=== PATIENT | male | born 1945 | race Caucasian/White ===

== ENCOUNTER → 2016-11-01 | Outpatient (CLI) | payer MEDICARE ==
[2016-11-01 20:23] LABS: Non-African American GFR(MDRD) >60 (>60 ml/min/1.73 sqM)
--- NOTE | 2016-11-02 02:45 | MR ---
EXAMINATION TYPE: MR liver wo/w con DATE OF EXAM: 11/01/2016 9:29 PM COMPARISON: 02/10/2016 HISTORY: Unspecified cirrhosis of liver CONTRAST: Standard multiplanar, multisequence MRI departmental protocol utilizing 20 mL intravenous MultiHance gadolinium contrast. FINDINGS: Liver is somewhat small and irregular. This is consistent with cirrhosis. There is no discr ete liver mass. There is uniform enhancement of the liver with the contrast. Liver margin is somewhat irregular. Spleen is enlarged and measures 15 cm. There are enlarged splenic veins consistent with p ortal venous hypertension. There is no evidence of a pancreatic mass. There is massive ascites. There is a 2 cm cortical cyst on the upper pole of the left kidney. Kidneys show no hydronephrosis. T here is no evidence of retroperitoneal adenopathy. There are some prominent vessels at the gastric fu ndus consistent with varices. There is a left pleural effusion. IMPRESSION: There are changes of hepatic cirrhosis with splenomegaly and evidence of portal venous hypertension. No discrete liver mass. Massive ascites. Left pleural effusion. Compared to the old MR scan of 02/10/2016 the changes in the liver are new. Ascites fluid is new. Sple nomegaly is stable. Left pleural effusion appears new.
== END | disposition home or self-care (01) ==
LOC: RADMRIMAIN 19:39
PROVIDERS: ATTEND Internal Medicine Gastroenterology
DX: K74.60 Unspecified cirrhosis of liver (principal); R16.1 Splenomegaly, not elsewhere classified; K76.6 Portal hypertension; R18.8 Other ascites
CPT/HCPCS: 82565; 74183; A9577

== ENCOUNTER 2017-01-04 08:45 | Day surgery (SDC) | payer MEDICARE ==
[2017-01-04 09:38] VITALS: RESP 14; TEMP 98.1
[2017-01-04 10:05] LABS: INR 1.2 (<1.1); Non-African American GFR(MDRD) >60 (>60 ml/min/1.73 sqM); Prothrombin Time 11.8 sec (9.0-12.0)
[2017-01-04 10:24] LABS: Mean Platelet Volume 8.9
[2017-01-04] MEDS: ALBUMIN HUMAN 25% 50 ML in EMPTY BAG 1 BAG IVPB SCH ×3 (11:37→12:07)
[2017-01-04] MEDS ORDERED: ALBUMIN HUMAN 25% 50 ML in EMPTY BAG 1 BAG IVPB ONE (12:30)
[2017-01-04] MEDS ORDERED: ALBUMIN HUMAN 25% 25 ML in EMPTY BAG 1 BAG IVPB ONE (12:30)
[2017-01-04 12:59] VITALS: BP 123/56; PULSE 71
--- NOTE | 2017-01-04 16:00 | US ---
EXAMINATION TYPE: US paracentesis abd w/image DATE OF EXAM: 01/04/2017 1:06 PM COMPARISON: NONE HISTORY: Ascites. PROCEDURE: Maximal barrier technique was utilized. The skin overlying a suitable pocket of fluid was localized with ultrasound and the overlying skin was prepped and draped. Ultrasound was utilized with sterile technique. Lidocaine was used for local anesthesia and a skin louann made with a scalpel. Catheter was advanced under direct ultrasound guidance into a suitable pocket of fluid and approximately 11.2 lite rs of serous fluid were removed. Catheter was withdrawn and hemostasis achieved. There is no immedi ate complication; the patient is discharged in stable condition. IMPRESSION: STATUS POST ULTRASOUND GUIDED PARACENTESIS FOR PALLIATION OF ASCITES. THIS PROCEDURE WA S PERFORMED BY THE UNDERSIGNED.
== END 2017-01-04 13:20 | disposition home or self-care (01) ==
LOC: RADPROMAIN 08:45
PROVIDERS: ATTEND Internal Medicine Gastroenterology
DX: R18.8 Other ascites (principal)
CPT/HCPCS: 82565; 85049; 85610; 96365; 49083; P9047

== ENCOUNTER 2017-02-15 12:05 | Day surgery (SDC) | payer MEDICARE ==
[2017-02-15 12:33] VITALS: RESP 14; TEMP 98.1
[2017-02-15 12:35] LABS: Mean Platelet Volume 9.1
[2017-02-15 12:39] LABS: INR 1.2 (<1.1); Prothrombin Time 11.5 sec (9.0-12.0)
[2017-02-15 12:46] LABS: Non-African American GFR(MDRD) >60 (>60 ml/min/1.73 sqM)
[2017-02-15] MEDS: ALBUMIN HUMAN 25% 50 ML in EMPTY BAG 1 BAG IVPB SCH ×4 (13:56→15:18)
[2017-02-15 14:28] VITALS: BP 132/63; PULSE 71
--- NOTE | 2017-02-15 15:33 | US ---
EXAMINATION TYPE: US paracentesis abd w/image DATE OF EXAM: 02/15/2017 CLINICAL HISTORY: Ascites The procedure was discussed with the patient. The risks, complications, benefits, and alternatives we re discussed and any questions were answered. Informed consent was obtained. The patient was placed s upine on the ultrasound table and prepped and draped in the usual sterile fashion. All elements of maximal barrier technique were utilized. Under ultrasound guidance, access into the right lower quadrant was obtained, via the paracentesis catheter system and direct ultrasound guidanc e. Approximately 7.5 liters of straw-colored fluid was removed. The patient was stable throughout the pr ocedure and remained stable upon discharge from Department of Radiology. IMPRESSION: Successful therapeutic paracentesis under ultrasound guidance.
== END 2017-02-15 14:48 | disposition home or self-care (01) ==
LOC: RADPROMAIN 12:05
PROVIDERS: ATTEND Internal Medicine Gastroenterology
DX: R18.8 Other ascites (principal)
CPT/HCPCS: 82565; 85049; 85610; 96365; 49083; P9047

== ENCOUNTER 2017-03-08 09:02 | Day surgery (SDC) | payer MEDICARE ==
[2017-03-08 09:19] VITALS: TEMP 97.7
[2017-03-08 09:42] LABS: INR 1.2 (<1.1); Prothrombin Time 11.5 sec (9.0-12.0)
[2017-03-08 09:45] LABS: Non-African American GFR(MDRD) >60 (>60 ml/min/1.73 sqM)
[2017-03-08 09:57] LABS: Mean Platelet Volume 8.8
[2017-03-08 10:21] VITALS: RESP 20
[2017-03-08] MEDS: ALBUMIN HUMAN 25% 50 ML in EMPTY BAG 1 BAG IVPB SCH ×5 (10:48→12:10)
[2017-03-08 12:11] VITALS: BP 121/58; PULSE 74
--- NOTE | 2017-03-08 16:00 | US ---
EXAMINATION TYPE: US paracentesis abd w/image DATE OF EXAM: 03/08/2017 COMPARISON: NONE HISTORY: Ascites. PROCEDURE: Maximal barrier technique was utilized. The skin overlying a suitable pocket of fluid was localized with ultrasound and the overlying skin was prepped and draped. Ultrasound was utilized with sterile technique. Lidocaine was used for local anesthesia and a skin louann made with a scalpel. Catheter was advanced under direct ultrasound guidance into a suitable pocket of fluid and approximately 9.6 liter s of serous fluid were removed. Catheter was withdrawn and hemostasis achieved. There is no immedia te complication; the patient is discharged in stable condition. IMPRESSION: STATUS POST ULTRASOUND GUIDED PARACENTESIS FOR PALLIATION OF ASCITES. THIS PROCEDURE WA S PERFORMED BY THE UNDERSIGNED.
== END 2017-03-08 12:20 | disposition home or self-care (01) ==
LOC: RADPROMAIN 09:02
PROVIDERS: ATTEND Internal Medicine Gastroenterology
DX: R18.8 Other ascites (principal)
CPT/HCPCS: 82565; 85049; 85610; 96365; 36415; 49083; P9047

== ENCOUNTER 2017-03-25 08:56 | Day surgery (SDC) | payer MEDICARE ==
[2017-03-25 09:23] VITALS: RESP 14; TEMP 97.7
[2017-03-25] MEDS ORDERED: HYDROcodone/APAP 5-325MG 1 EACH TAB PO STA (09:25)
[2017-03-25 09:27] LABS: INR 1.2 (<1.1); Prothrombin Time 11.5 sec (9.0-12.0)
[2017-03-25 09:29] LABS: Mean Platelet Volume 9.3
[2017-03-25 09:30] LABS: Non-African American GFR(MDRD) >60 (>60 ml/min/1.73 sqM)
[2017-03-25] MEDS: ALBUMIN HUMAN 25% 50 ML in EMPTY BAG 1 BAG IVPB SCH ×4 (10:07→10:53)
[2017-03-25 11:39] VITALS: BP 118/54; PULSE 78
--- NOTE | 2017-03-25 11:58 | US ---
Therapeutic paracentesis. DATE OF EXAM: 03/25/2017 CLINICAL HISTORY: Ascites The procedure was discussed with the patient. The risks, complications, benefits, and alternatives we re discussed and any questions were answered. Informed consent was obtained. The patient was placed s upine on the ultrasound table and prepped and draped in the usual sterile fashion. All elements of maximal barrier technique were utilized. Under ultrasound guidance, access into the left lower quadrant was obtained, via the paracentesis catheter system and direct ultrasound guidance . Approximately 10.8 liters of straw-colored fluid was removed. The patient was stable throughout the p rocedure and remained stable upon discharge from Department of Radiology. IMPRESSION: Successful therapeutic paracentesis under ultrasound guidance.
== END 2017-03-25 11:45 | disposition home or self-care (01) ==
LOC: RADPROMAIN 08:56
PROVIDERS: ATTEND Internal Medicine Gastroenterology
DX: R18.8 Other ascites (principal)
CPT/HCPCS: 82565; 85049; 85610; 96365; 49083; P9047

== ENCOUNTER 2017-04-02 11:53 | Day surgery (SDC) | payer MEDICARE ==
[2017-04-02 12:14] VITALS: RESP 14; TEMP 98.3
[2017-04-02 12:18] LABS: Mean Platelet Volume 8.8
[2017-04-02 12:21] LABS: INR 1.1 (<1.1); Prothrombin Time 11.3 sec (9.0-12.0)
[2017-04-02 12:25] LABS: Non-African American GFR(MDRD) >60 (>60 ml/min/1.73 sqM)
[2017-04-02] MEDS: ALBUMIN HUMAN 25% 50 ML in EMPTY BAG 1 BAG IVPB SCH ×4 (13:19→13:58)
[2017-04-02 14:20] VITALS: BP 132/53; PULSE 79
--- NOTE | 2017-04-02 15:18 | US ---
EXAMINATION TYPE: US paracentesis abd w/image DATE OF EXAM: 04/02/2017 COMPARISON: NONE HISTORY: Ascites. PROCEDURE: Maximal barrier technique was utilized. The skin overlying a suitable pocket of fluid was localized with ultrasound and the overlying skin was prepped and draped. Ultrasound was utilized with sterile technique. Lidocaine was used for local anesthesia and a skin louann made with a scalpel. Catheter was advanced under direct ultrasound guidance into a suitable pocket of fluid and approximately 9.7 liter s of serous fluid were removed. Catheter was withdrawn and hemostasis achieved. There is no immedia te complication; the patient is discharged in stable condition. IMPRESSION: STATUS POST ULTRASOUND GUIDED PARACENTESIS FOR PALLIATION OF ASCITES. THIS PROCEDURE WA S PERFORMED BY THE UNDERSIGNED.
== END 2017-04-02 14:37 | disposition home or self-care (01) ==
LOC: RADPROMAIN 11:53
PROVIDERS: ATTEND Internal Medicine Gastroenterology
DX: R18.8 Other ascites (principal)
CPT/HCPCS: 82565; 85049; 85610; 96365; 49083; P9047

== ENCOUNTER 2017-04-10 09:04 | Day surgery (SDC) | payer MEDICARE ==
[2017-04-10 09:16] VITALS: TEMP 98.1
[2017-04-10 09:39] LABS: INR 1.1 (<1.2); Prothrombin Time 11.5 sec (9.0-12.0)
[2017-04-10 09:45] LABS: Non-African American GFR(MDRD) >60 (>60 ml/min/1.73 sqM)
[2017-04-10 10:35] VITALS: RESP 16
[2017-04-10] MEDS: ALBUMIN HUMAN 25% 50 ML in EMPTY BAG 1 BAG IVPB SCH ×3 (10:37→11:01)
[2017-04-10 11:29] VITALS: BP 131/60; PULSE 84
--- NOTE | 2017-04-10 12:11 | US ---
EXAMINATION TYPE: US paracentesis abd w/image DATE OF EXAM: 04/10/2017 CLINICAL HISTORY: Ascites The procedure was discussed with the patient. The risks, complications, benefits, and alternatives we re discussed and any questions were answered. Informed consent was obtained. The patient was placed s upine on the ultrasound table and prepped and draped in the usual sterile fashion. All elements of maximal barrier technique were utilized. Under ultrasound guidance, access into the left lower quadrant was obtained, via the paracentesis catheter system and direct ultrasound guidance . Approximately 9.2 liters of straw-colored fluid was removed. The patient was stable throughout the pr ocedure and remained stable upon discharge from Department of Radiology. IMPRESSION: Successful therapeutic paracentesis under ultrasound guidance.
== END 2017-04-10 11:52 | disposition home or self-care (01) ==
LOC: RADPROMAIN 09:04
PROVIDERS: ATTEND Internal Medicine Gastroenterology
DX: R18.8 Other ascites (principal)
CPT/HCPCS: 82565; 85049; 85610; 96365; 49083; P9047

== ENCOUNTER 2017-04-19 08:39 | Day surgery (SDC) | payer MEDICARE ==
[2017-04-19 09:15] VITALS: TEMP 97.6
[2017-04-19 09:25] LABS: Mean Platelet Volume 8.2
[2017-04-19 09:33] LABS: INR 1.1 (<1.2); Prothrombin Time 10.7 sec (9.0-12.0)
[2017-04-19 09:45] LABS: Non-African American GFR(MDRD) >60 (>60 ml/min/1.73 sqM)
[2017-04-19] MEDS: ALBUMIN HUMAN 25% 50 ML in EMPTY BAG 1 BAG IVPB SCH ×4 (11:30→13:00)
--- NOTE | 2017-04-19 14:04 | US ---
EXAMINATION TYPE: US paracentesis abd w/image DATE OF EXAM: 04/19/2017 COMPARISON: NONE HISTORY: Ascites. PROCEDURE: Maximal barrier technique was utilized. The skin overlying a suitable pocket of fluid was localized with ultrasound and the overlying skin was prepped and draped. Ultrasound was utilized with sterile technique. Lidocaine was used for local anesthesia and a skin louann made with a scalpel. Catheter was advanced under direct ultrasound guidance into a suitable pocket of fluid and approximately 9.1 liter s of serous fluid were removed. Catheter was withdrawn and hemostasis achieved. There is no immedia te complication; the patient is discharged in stable condition. IMPRESSION: STATUS POST ULTRASOUND GUIDED PARACENTESIS FOR PALLIATION OF ASCITES. THIS PROCEDURE WA S PERFORMED BY THE UNDERSIGNED.
[2017-04-19 16:24] VITALS: BP 127/64; PULSE 65; RESP 18
== END 2017-04-19 13:15 | disposition home or self-care (01) ==
LOC: RADPROMAIN 08:39
PROVIDERS: ATTEND Internal Medicine Gastroenterology
DX: R18.8 Other ascites (principal)
CPT/HCPCS: 82565; 85049; 85610; 96365; 36415; 49083; P9047

== ENCOUNTER 2017-04-29 09:14 | Day surgery (SDC) | payer MEDICARE ==
[2017-04-29 11:45] LABS: Mean Platelet Volume 9.9
[2017-04-29 11:55] LABS: Non-African American GFR(MDRD) >60 (>60 ml/min/1.73 sqM)
[2017-04-29 12:06] LABS: INR 1.1 (<1.2); Prothrombin Time 11.1 sec (9.0-12.0)
[2017-04-29] MEDS: ALBUMIN HUMAN 25% 50 ML in EMPTY BAG 1 BAG IVPB SCH ×4 (12:40→13:29)
[2017-04-29 14:24] VITALS: BP 149/63; PULSE 78; RESP 16
--- NOTE | 2017-04-29 16:59 | US ---
EXAMINATION TYPE: US paracentesis abd w/image DATE OF EXAM: 04/29/2017 COMPARISON: NONE HISTORY: Ascites. PROCEDURE: Maximal barrier technique was utilized. The skin overlying a suitable pocket of fluid was localized with ultrasound and the overlying skin was prepped and draped. Ultrasound was utilized with sterile technique. Lidocaine was used for local anesthesia and a skin louann made with a scalpel. Catheter was advanced under direct ultrasound guidance into a suitable pocket of fluid and approximately 8.5 liter s of serous fluid were removed. Catheter was withdrawn and hemostasis achieved. There is no immedia te complication; the patient is discharged in stable condition. IMPRESSION: STATUS POST ULTRASOUND GUIDED PARACENTESIS FOR PALLIATION OF ASCITES. THIS PROCEDURE WA S PERFORMED BY THE UNDERSIGNED.
== END 2017-04-29 14:15 | disposition home or self-care (01) ==
LOC: RADPROMAIN 09:14
PROVIDERS: ATTEND Internal Medicine Gastroenterology
DX: R18.8 Other ascites (principal)
CPT/HCPCS: 82565; 85049; 85610; 96365; 36415; 49083; P9047

== ENCOUNTER 2017-04-29 09:26 | Emergency (ER) | payer MEDICARE ==
--- NOTE | 2017-04-29 10:03 | ED ---
General Adult HPI - General Chief complaint: Fall Stated complaint: Fall Time Seen by Provider: 04/29/17 09:51 Source: patient, family, RN notes reviewed Mode of arrival: wheelchair Limitations: no limitations - History of Present Illness Initial comments: Patient is a pleasant 71-year-old male presenting to the emergency department following a fall. Patient was coming to the hospital today to have fluid drained from his abdomen. Patient has paracentesis done weekly secondary to liver disease. Patient states normally the take off around 9 L. Patient does feel somewhat short of breath however attributes most that to his abdominal distention. Patient did fall today and landed on his left side. Patient did scratch his left elbow, tenderness immunization up-to-date. Patient mostly complains of discomfort of his left ribs. Patient denies any abdominal discomfort several times. Patient states he did chip a tooth and has some mild left jaw discomfort. Patient states he frequently does have balance problems and does frequently fall or lose his balance. No head injury or loss of consciousness. - Related Data Home Medications Medication Instructions Recorded Confirmed Sertraline [Zoloft] 200 mg PO DAILY 04/09/14 04/22/17 Simvastatin [Zocor] 40 mg PO DAILY 04/09/14 04/22/17 Ferrous Sulfate [Feosol] 325 mg PO BID 05/23/16 04/22/17 Furosemide [Lasix] 40 mg PO BID 01/04/17 04/22/17 Lactulose 10 ml PO BID 01/04/17 04/22/17 Propranolol [Inderal] 1 tab PO DAILY 01/04/17 04/22/17 Spironolactone [Aldactone] 100 mg PO BID 01/04/17 04/22/17 Cholestyramine (with Sugar) 1 packet PO DAILY 02/15/17 04/22/17 [Cholestyramine Packet] Ursodiol [Actigall] 300 mg PO BID 02/15/17 04/22/17 Eszopiclone [Lunesta] 3 mg PO HS 04/19/17 04/22/17 Sucralfate [Carafate] 1 gm PO QID 04/19/17 04/22/17 Melatonin 10 mg PO HS 04/29/17 04/29/17 Pantoprazole Sodium [Protonix] 40 mg PO BID 04/29/17 04/29/17 Previous Rx's Medication Instructions Recorded traMADol HCl [Ultram] 50 mg PO Q6H PRN #20 tab 04/29/17 Allergies Allergy/AdvReac Type Severity Reaction Status Date / Time erythromycin base Allergy Intermediate Abdominal Verified 04/29/17 09:38 [Erythromycin Base] Pain fresh fruit Allergy Anaphylaxis Uncoded 04/29/17 09:38 raw nuts Allergy Anaphylaxis Uncoded 04/29/17 09:38 Review of Systems ROS Statement: Those systems with pertinent positive or pertinent negative responses have been documented in the HPI. ROS Other: All systems not noted in ROS Statement are negative. Constitutional: Denies: fever Eyes: Denies: eye pain ENT: Denies: ear pain Respiratory: Reports: dyspnea. Denies: cough Cardiovascular: Reports: chest pain (Left ribs) Endocrine: Denies: fatigue Gastrointestinal: Reports: abdominal pain (Distended, chronic) Genitourinary: Denies: dysuria Musculoskeletal: Denies: back pain Skin: Denies: rash Past Medical History Past Medical History: GERD/Reflux, GI Bleed, Hyperlipidemia, Hypertension, Osteoarthritis (OA) Additional Past Medical History / Comment(s): rectal polyps, Cirrohosis- 3 UNITS BLOOD @ [facility] 05/14/16 R/T GI BLEEDING- PT STATES LAST HGB 10 WAS 7 PRIOR TO TRANSFUSION, ascites requiring paracentesis History of Any Multi-Drug Resistant Organisms: None Reported Past Surgical History: Hernia Repair, Joint Replacement Additional Past Surgical History / Comment(s): Knee surgery X2 on the right knee , Knee surgery x 2 left knee, Lt knee replacement about 2 1/[address] Rodriguez, Rt hand surgery carpal tunnel and trigger finger release, Rt inguinal hernia repair, Eyelid surgery on both eyes to clip them, paracentesis Past Anesthesia/Blood Transfusion Reactions: No Reported Reaction Past Psychological History: Anxiety Smoking Status: Former smoker Past Alcohol Use History: None Reported Past Drug Use History: None Reported - Past Family History Mother Additional Family Medical History / Comment(s): from Cancer at age 36- cervical & colon Father Additional Family Medical History / Comment(s): of lung cancer at 54 Daughter(s) Additional Family Medical History / Comment(s): Endometrosis Sister(s) Family Medical History: Thyroid Disorder General Exam Limitations: no limitations General appearance: alert, in no apparent distress Head exam: Present: atraumatic, normocephalic Eye exam: Present: normal appearance, PERRL ENT exam: Present: normal oropharynx, other (Left upper central incisor with small chip. This is a dental and plan.) Neck exam: Present: normal inspection. Absent: tenderness Respiratory exam: Present: normal lung sounds bilaterally, chest wall tenderness (Left 10th rib posterior, anterior/lateral approximately ribs 8 and 9.) Cardiovascular Exam: Present: regular rate, normal rhythm GI/Abdominal exam: Present: soft, distended. Absent: tenderness, guarding, rebound, rigid Extremities exam: Present: normal inspection, full ROM. Absent: tenderness Back exam: Present: other (left Posterior 10th rib tenderness). Absent: vertebral tenderness Neurological exam: Present: alert Psychiatric exam: Present: normal affect, normal mood Skin exam: Present: abrasion (Left elbow) Course Vital Signs 04/29/17 09:33 Temperature 97.0 F L Pulse Rate 84 Respiratory 20 Rate Blood Pressure 120/53 O2 Sat by Pulse 100 Oximetry Medical Decision Making - Medical Decision Making Patient reexamined and resting comfortably in bed. Patient still feels somewhat short of breath however attributes this to his abdominal distention. Patient would like to go have his paracentesis done. Patient is receptive to pain medication at this time as well as discharge. Patient states she can only have limited Tylenol. Patient advised on need to return for difficulty breathing or worsening symptoms. Family is present. - Radiology Data Radiology results: image reviewed (Mandible x-ray and x-ray of the left ribs and chest show no acute abnormality. No evidence of pneumothorax or displaced rib fracture.) Disposition Clinical Impression: Fall, Contusion of chest Disposition: HOME SELF-CARE Condition: Stable Instructions: Rib Fracture (ED) Additional Instructions: Please follow-up with primary care physician in the next day or 2 for recheck. You are able to have your paracentesis done at this time. Return for difficulty in breathing and increased pain, abdominal pain, worsening or changing symptoms or other concerns. Prescriptions: traMADol HCl [Ultram] 50 mg PO Q6H PRN #20 tab PRN Reason: Pain/Discomfort Referrals: Hilda Ron MD [Primary Care Provider] - 1-2 days Time of Disposition: 10:59
--- NOTE | 2017-04-29 10:33 | XR ---
EXAMINATION TYPE: XR mandible complete DATE OF EXAM: 04/29/2017 CLINICAL HISTORY: Mandibular pain after a fall TECHNIQUE: Frontal, lateral, and open-mouth views of the mandible were obtained. COMPARISON: None. FINDINGS: There is no acute fracture/dislocation evident in the mandible. Visualized cervical spine maintains normal alignment with no prevertebral soft tissue swelling. No radiopaque foreign body is s een. Paranasal sinuses are well aerated. No nasal septal deviation. IMPRESSION: There is no acute fracture or dislocation of the mandible.
--- NOTE | 2017-04-29 10:36 | XR ---
EXAMINATION TYPE: XR ribs LT w pa chest xray DATE OF EXAM: 04/29/2017 CLINICAL HISTORY: Left-sided rib pain after a fall TECHNIQUE: Single frontal view of the chest is obtained. COMPARISON: None FINDINGS: No displaced rib fractures identified. The osseous structures appear intact with degenerati ve changes of the acromioclavicular joints. There is no focal air space opacity, pleural effusion, or pneumothorax seen. The cardiac silhouette size is within normal limits. IMPRESSION: No evidence of displaced rib fracture or acute cardiopulmonary process.
[2017-04-29] MEDS ORDERED: MORPHINE SULFATE 10 MG/ML SYRINGE IM STA (10:56)
[2017-04-29 11:19] VITALS: BP 129/62; PULSE 77; RESP 18; TEMP 97.8
== END 2017-04-29 11:21 | disposition home or self-care (01) ==
LOC: EC 09:26
DX: S20.212A Contusion of left front wall of thorax, initial encounter (principal); S50.312A Abrasion of left elbow, initial encounter; R68.84 Jaw pain; K21.9 Gastro-esophageal reflux disease without esophagitis; I10 Essential (primary) hypertension; E78.5 Hyperlipidemia, unspecified; M19.90 Unspecified osteoarthritis, unspecified site; F41.9 Anxiety disorder, unspecified; Z87.891 Personal history of nicotine dependence; Z79.899 Other long term (current) drug therapy; Z88.1 Allergy status to other antibiotic agents; Z91.018 Allergy to other foods; W19.XXXA Unspecified fall, initial encounter
CPT/HCPCS: 70110; 71101; 99283; 96372; J2270

== ENCOUNTER 2017-05-08 08:46 | Day surgery (SDC) | payer MEDICARE ==
[2017-05-08 09:26] VITALS: RESP 14; TEMP 97.6
[2017-05-08 09:28] LABS: Mean Platelet Volume 8.5
[2017-05-08 09:39] LABS: INR 1.2 (<1.2)
[2017-05-08 09:41] LABS: Non-African American GFR(MDRD) >60 (>60 ml/min/1.73 sqM)
[2017-05-08] MEDS: ALBUMIN HUMAN 25% 50 ML in EMPTY BAG 1 BAG IVPB SCH ×4 (10:12→11:15)
[2017-05-08 11:18] VITALS: BP 109/51; PULSE 70
--- NOTE | 2017-05-08 13:08 | US ---
EXAMINATION TYPE: US paracentesis abd w/image DATE OF EXAM: 05/08/2017 COMPARISON: NONE HISTORY: Ascites. PROCEDURE: Maximal barrier technique was utilized. The skin overlying a suitable pocket of fluid was localized with ultrasound and the overlying skin was prepped and draped. Ultrasound was utilized with sterile technique. Lidocaine was used for local anesthesia and a skin louann made with a scalpel. Catheter was advanced under direct ultrasound guidance into a suitable pocket of fluid and approximately 7.5 liter s of serous fluid were removed. Catheter was withdrawn and hemostasis achieved. There is no immedia te complication; the patient is discharged in stable condition. IMPRESSION: STATUS POST ULTRASOUND GUIDED PARACENTESIS FOR PALLIATION OF ASCITES. THIS PROCEDURE WA S PERFORMED BY THE UNDERSIGNED.
== END 2017-05-08 11:30 | disposition home or self-care (01) ==
LOC: RADPROMAIN 08:46
PROVIDERS: ATTEND Internal Medicine Gastroenterology
DX: R18.8 Other ascites (principal)
CPT/HCPCS: 49083; 82565; 85049; 85610

== ENCOUNTER 2017-05-16 12:00 | Day surgery (SDC) | payer MEDICARE ==
[2017-05-16 12:46] VITALS: TEMP 98.1
[2017-05-16 13:34] VITALS: RESP 20
[2017-05-16] MEDS: ALBUMIN HUMAN 25% 50 ML in EMPTY BAG 1 BAG IVPB SCH ×3 (13:51→14:28)
[2017-05-16 15:10] VITALS: BP 112/54; PULSE 69
--- NOTE | 2017-05-16 16:00 | US ---
EXAMINATION TYPE: US paracentesis abd w/image DATE OF EXAM: 05/16/2017 CLINICAL HISTORY: Ascites The procedure was discussed with the patient. The risks, complications, benefits, and alternatives we re discussed and any questions were answered. Informed consent was obtained. The patient was placed s upine on the ultrasound table and prepped and draped in the usual sterile fashion. All elements of maximal barrier technique were utilized. Under ultrasound guidance, access into the left lower quadrant was obtained, via the paracentesis catheter system and direct ultrasound guidance . Approximately 7.1 liters of straw-colored fluid was removed. The patient was stable throughout the pr ocedure and remained stable upon discharge from Department of Radiology. IMPRESSION: Successful therapeutic paracentesis under ultrasound guidance.
== END 2017-05-16 15:15 ==
LOC: RADPROMAIN 12:00
PROVIDERS: ATTEND Internal Medicine Gastroenterology
DX: R18.8 Other ascites (principal)
CPT/HCPCS: 96365; 36415; 49083; P9047

== ENCOUNTER 2017-05-22 08:20 | Day surgery (SDC) | payer MEDICARE ==
[2017-05-20 10:29] VITALS: BMI 21.7
[~2017-05-22 08:20] MED LIST: LACTATED RINGERS 1,000 ML IV SCH
[2017-05-22 10:11] VITALS: TEMP 98.3
[2017-05-22] MEDS ORDERED: LIDOCAINE 1% 20 ML VIAL (10MG/ML) FOR IV START INTRADERMA ONE (10:34)
[2017-05-22] MEDS ORDERED: PROPOFOL 10 MG/ML 20 ML VIAL IV ONE (11:09)
[2017-05-22] MEDS ORDERED: LIDOCAINE 1% INJ 10MG/ML (20 ML MDV) ONE (11:09)
--- NOTE | 2017-05-22 11:26 | P.PCN ---
Date of Procedure: 05/22/17 Preoperative Diagnosis: Postoperative Diagnosis: Procedure(s) Performed: BRIEF HISTORY: Patient is a 71-year-old, pleasant, . 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 The last one was performed 3 months ago. He scheduled for UPPER endoscopy today. 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 PROCEDURE PERFORMED: Esophagogastroduodenoscopy. with argon plasma coagulation PREOPERATIVE DIAGNOSIS: severe symptomatic anemia secondary to GI blood loss from gastric antral vascular ectasia IV sedation per anesthesia. PROCEDURE: After informed consent was obtained, the patient was brought into the endoscopy unit. IV sedation was administered by Anesthesia under continuous monitoring. Initially the Olympus GIF-140 video endoscope was inserted into the mouth. Esophagus intubated without any difficulty. It was gradually advanced into the stomach and duodenum and carefully examined. The bulb and the second part of the duodenum appeared normal. The scope at this time was withdrawn to the stomach, adequately insufflated with air, and upon careful examination, mucosa of the antrum, had severe gastric antral vascular ectasia with oozing in some areas and this was coagulated using argon plasma with good hemostasis. The body, cardia and the fundus appeared normal. The scope was then withdrawn into the esophagus. The GE junction was located at 39 cm from the incisors. The esophagus appeared normal. There were small esophageal varices identified.There were no erosions or ulcerations seen and the patient tolerated the procedure well. IMPRESSION: 1. 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 Small distal esophageal varices. RECOMMENDATIONS: The findings of this examination were discussed with the patient as well as his family. We will repeat CBC every 2 weeks and transfuse as as needed. We'll plan a repeat upper endoscopy in 3 months Implants: Indications for Procedure: Operative Findings: Description of Procedure:
[2017-05-22 11:50] VITALS: RESP 16
[2017-05-22 12:06] VITALS: BP 106/58; PULSE 69
== END 2017-05-22 12:17 | disposition home or self-care (01) ==
LOC: ORWHC2ENDO 08:20
PROVIDERS: ATTEND Internal Medicine Gastroenterology
DX: K31.811 Angiodysplasia of stomach and duodenum with bleeding (principal); I85.00 Esophageal varices without bleeding; I10 Essential (primary) hypertension; K21.9 Gastro-esophageal reflux disease without esophagitis; F32.9 Major depressive disorder, single episode, unspecified; Z79.891 Long term (current) use of opiate analgesic; Z79.899 Other long term (current) drug therapy; Z88.1 Allergy status to other antibiotic agents
CPT/HCPCS: 43255; J2001; J2704

== ENCOUNTER 2017-05-24 12:02 | Day surgery (SDC) | payer MEDICARE ==
[2017-05-24 12:47] LABS: Mean Platelet Volume 8.1
[2017-05-24 12:55] VITALS: TEMP 98.1
[2017-05-24 12:56] LABS: Non-African American GFR(MDRD) >60 (>60 ml/min/1.73 sqM)
[2017-05-24 13:05] LABS: INR 1.2 (<1.2); Prothrombin Time 12.2 sec (9.0-12.0)
[2017-05-24] MEDS: ALBUMIN HUMAN 25% 50 ML in EMPTY BAG 1 BAG IVPB SCH ×4 (13:15→14:33)
[2017-05-24] MEDS ORDERED: ALPRAZolam 0.25 MG TAB PO STA (13:26)
[2017-05-24 13:39] VITALS: RESP 16
[2017-05-24 13:59] LABS: Glucose,Whole Blood 83 mg/dL (75-99)
[2017-05-24 14:19] VITALS: BP 121/66; PULSE 76
--- NOTE | 2017-05-24 14:25 | US ---
Therapeutic paracentesis. DATE OF EXAM: 05/24/2017 CLINICAL HISTORY: Ascites The procedure was discussed with the patient. The risks, complications, benefits, and alternatives we re discussed and any questions were answered. Informed consent was obtained. The patient was placed s upine on the ultrasound table and prepped and draped in the usual sterile fashion. All elements of maximal barrier technique were utilized. Under ultrasound guidance, access into the right lower quadrant was obtained, via the paracentesis catheter system and direct ultrasound guidanc e. Approximately 5 liters of straw-colored fluid was removed. The patient was stable throughout the proc edure and remained stable upon discharge from Department of Radiology. IMPRESSION: Successful therapeutic paracentesis under ultrasound guidance.
== END 2017-05-24 14:55 | disposition home or self-care (01) ==
LOC: RADPROMAIN 12:02
PROVIDERS: ATTEND Internal Medicine Gastroenterology
DX: R18.8 Other ascites (principal)
CPT/HCPCS: 82565; 85049; 85610; 96365; 36415; 49083; P9047

== ENCOUNTER 2017-06-05 10:53 | Day surgery (SDC) | payer MEDICARE ==
[2017-06-05 11:30] LABS: Mean Platelet Volume 9.6
[2017-06-05 11:33] LABS: Non-African American GFR(MDRD) >60 (>60 ml/min/1.73 sqM)
[2017-06-05 11:38] VITALS: TEMP 97.9
[2017-06-05 12:26] LABS: INR 1.2 (<1.2); Prothrombin Time 12.2 sec (9.0-12.0)
[2017-06-05] MEDS: ALBUMIN HUMAN 25% 50 ML in EMPTY BAG 1 BAG IVPB SCH ×2 (13:04→13:17)
[2017-06-05 13:06] VITALS: RESP 18
[2017-06-05 14:36] VITALS: BP 131/67; PULSE 76
--- NOTE | 2017-06-05 15:15 | US ---
EXAMINATION TYPE: US paracentesis abd w/image DATE OF EXAM: 06/05/2017 COMPARISON: Prior exam 05/24/2017 HISTORY: Ascites. PROCEDURE: Maximal barrier technique was utilized. The skin overlying a suitable pocket of fluid was localized with ultrasound and the overlying skin was prepped and draped. Ultrasound was utilized with sterile technique. Lidocaine was used for local anesthesia and a skin louann made with a scalpel. Catheter was advanced under direct ultrasound guidance into a suitable pocket of fluid and approximately 5.1 liter s of serous fluid were removed. Catheter was withdrawn and hemostasis achieved. There is no immedia te complication; the patient is discharged in stable condition. IMPRESSION: STATUS POST ULTRASOUND GUIDED PARACENTESIS FOR PALLIATION OF ASCITES. THIS PROCEDURE WA S PERFORMED BY THE UNDERSIGNED.
== END 2017-06-05 14:20 | disposition home or self-care (01) ==
LOC: RADPROMAIN 10:53
PROVIDERS: ATTEND Internal Medicine Gastroenterology
DX: R18.8 Other ascites (principal)
CPT/HCPCS: 82565; 85049; 85610; 96365; 36415; 49083; P9047

== ENCOUNTER 2017-06-19 11:43 | Day surgery (SDC) | payer MEDICARE ==
[2017-06-19 12:32] VITALS: TEMP 97.7
[2017-06-19] MEDS: ALBUMIN HUMAN 25% 50 ML in EMPTY BAG 1 BAG IVPB SCH ×4 (13:19→14:13)
[2017-06-19 13:42] VITALS: PULSE 80
[2017-06-19 14:25] VITALS: RESP 16
--- NOTE | 2017-06-19 15:07 | US ---
Therapeutic paracentesis. DATE OF EXAM: 06/19/2017 CLINICAL HISTORY: Ascites The procedure was discussed with the patient. The risks, complications, benefits, and alternatives we re discussed and any questions were answered. Informed consent was obtained. The patient was placed s upine on the ultrasound table and prepped and draped in the usual sterile fashion. All elements of maximal barrier technique were utilized. Under ultrasound guidance, access into the right lower quadrant was obtained, via the paracentesis catheter system and direct ultrasound guidanc e. Approximately 9.4 liters of straw-colored fluid was removed. The patient was stable throughout the pr ocedure and remained stable upon discharge from Department of Radiology. IMPRESSION: Successful therapeutic paracentesis under ultrasound guidance.
[2017-06-19 15:09] VITALS: BP 134/67
== END 2017-06-19 15:00 | disposition home or self-care (01) ==
LOC: RADPROMAIN 11:43
PROVIDERS: ATTEND Internal Medicine Gastroenterology
DX: R18.8 Other ascites (principal)
CPT/HCPCS: 96365; 49083; P9047

== ENCOUNTER 2017-06-26 11:17 | Day surgery (SDC) | payer MEDICARE ==
[2017-06-26 11:50] VITALS: RESP 14; TEMP 97.8
[2017-06-26] MEDS: ALBUMIN HUMAN 25% 50 ML in EMPTY BAG 1 BAG IVPB SCH ×4 (13:11→13:52)
[2017-06-26 14:31] VITALS: BP 110/71; PULSE 95
--- NOTE | 2017-06-26 15:09 | US ---
EXAMINATION TYPE: US paracentesis abd w/image DATE OF EXAM: 06/26/2017 COMPARISON: NONE HISTORY: Ascites. PROCEDURE: Maximal barrier technique was utilized. The skin overlying a suitable pocket of fluid was localized with ultrasound and the overlying skin was prepped and draped. Ultrasound was utilized with sterile technique. Lidocaine was used for local anesthesia and a skin louann made with a scalpel. Catheter was advanced under direct ultrasound guidance into a suitable pocket of fluid and approximately 8.9 liter s of serous fluid were removed. Catheter was withdrawn and hemostasis achieved. There is no immedia te complication; the patient is discharged in stable condition. IMPRESSION: STATUS POST ULTRASOUND GUIDED PARACENTESIS FOR PALLIATION OF ASCITES. THIS PROCEDURE WA S PERFORMED BY THE UNDERSIGNED.
== END 2017-06-26 14:39 | disposition home or self-care (01) ==
LOC: RADPROMAIN 11:17
PROVIDERS: ATTEND Internal Medicine Gastroenterology
DX: R18.8 Other ascites (principal)
CPT/HCPCS: 96365; 49083; P9047

== ENCOUNTER 2017-07-03 11:50 | Day surgery (SDC) | payer MEDICARE ==
[2017-07-03 12:12] VITALS: RESP 14; TEMP 98.6
[2017-07-03] MEDS ORDERED: ALPRAZolam 0.25 MG TAB PO STA (12:51)
[2017-07-03] MEDS: ALBUMIN HUMAN 25% 50 ML in EMPTY BAG 1 BAG IVPB SCH ×4 (13:05→14:10)
[2017-07-03 14:36] VITALS: BP 119/59; PULSE 97
--- NOTE | 2017-07-03 15:06 | US ---
EXAMINATION TYPE: US paracentesis abd w/image DATE OF EXAM: 07/03/2017 COMPARISON: NONE HISTORY: Ascites. PROCEDURE: Maximal barrier technique was utilized. The skin overlying a suitable pocket of fluid was localized with ultrasound and the overlying skin was prepped and draped. Ultrasound was utilized with sterile technique. Lidocaine was used for local anesthesia and a skin louann made with a scalpel. Catheter was advanced under direct ultrasound guidance into a suitable pocket of fluid and approximately 8.7 liter s of serous fluid were removed. Catheter was withdrawn and hemostasis achieved. There is no immedia te complication; the patient is discharged in stable condition. IMPRESSION: STATUS POST ULTRASOUND GUIDED PARACENTESIS FOR PALLIATION OF ASCITES. THIS PROCEDURE WA S PERFORMED BY THE UNDERSIGNED.
== END 2017-07-03 14:45 | disposition home or self-care (01) ==
LOC: RADPROMAIN 11:50
PROVIDERS: ATTEND Internal Medicine Gastroenterology
DX: R18.8 Other ascites (principal)
CPT/HCPCS: 96365; 49083; P9047

== ENCOUNTER 2017-07-10 12:01 | Day surgery (SDC) | payer MEDICARE ==
[2017-07-10 12:30] VITALS: RESP 16; TEMP 98.6
[2017-07-10] MEDS ORDERED: ALPRAZolam 0.25 MG TAB PO ONE (12:31)
[2017-07-10] MEDS: ALBUMIN HUMAN 25% 50 ML in EMPTY BAG 1 BAG IVPB SCH ×4 (13:59→14:49)
--- NOTE | 2017-07-10 15:40 | US ---
EXAMINATION TYPE: US paracentesis abd w/image DATE OF EXAM: 07/10/2017 COMPARISON: NONE HISTORY: Ascites. PROCEDURE: Maximal barrier technique was utilized. The skin overlying a suitable pocket of fluid was localized with ultrasound and the overlying skin was prepped and draped. Ultrasound was utilized with sterile technique. Lidocaine was used for local anesthesia and a skin louann made with a scalpel. Catheter was advanced under direct ultrasound guidance into a suitable pocket of fluid and approximately 7 liters of serous fluid were removed. Catheter was withdrawn and hemostasis achieved. There is no immediate complication; the patient is discharged in stable condition. IMPRESSION: STATUS POST ULTRASOUND GUIDED PARACENTESIS FOR PALLIATION OF ASCITES. THIS PROCEDURE WA S PERFORMED BY THE UNDERSIGNED.
[2017-07-10 15:42] VITALS: BP 110/54; PULSE 69
== END 2017-07-10 15:10 | disposition home or self-care (01) ==
LOC: RADPROMAIN 12:01
PROVIDERS: ATTEND Internal Medicine Gastroenterology
DX: R18.8 Other ascites (principal)
CPT/HCPCS: 96365; 49083; P9047

== ENCOUNTER 2017-07-16 08:44 | Day surgery (SDC) | payer MEDICARE ==
[~2017-07-16 08:44] MED LIST changes: +ALPRAZolam 0.25 MG TAB PO ONE; -LACTATED RINGERS 1,000 ML IV SCH
[2017-07-16 09:12] VITALS: TEMP 98.1
[2017-07-16 09:22] LABS: Mean Platelet Volume 9.1
[2017-07-16 09:31] LABS: Non-African American GFR(MDRD) >60 (>60 ml/min/1.73 sqM)
[2017-07-16 09:35] LABS: INR 1.1 (<1.2); Partial Thromboplastin Time 24.5 sec (22.0-30.0); Prothrombin Time 11.3 sec (9.0-12.0)
[2017-07-16 09:41] LABS: Anisocytosis Slight; Basophils % (A) 0 %; CH 28.2; CHCM 29.1; Eosinophils % (A) 0 %; HCT 31.9 % (39.0-53.0); HDW 2.87; HGB 8.8 gm/dL (13.0-17.5); Hypochromasia Marked; Luc # (Auto) 0.07; Luc % (Auto) 1; Lymphocytes # (A) 0.3 k/uL (1.0-4.8); Lymphocytes % (A) 5 %; MCH 26.9 pg (25.0-35.0); MCHC 27.6 g/dL (31.0-37.0); MCV 97.5 fL (80.0-100.0); Macrocytosis Slight; Mean Platelet Volume 8.5; Monocytes # (A) 0.7 k/uL (0-1.0); Monocytes % (A) 14 %; Neutrophils # (A) 4.2 k/uL (1.3-7.7); Neutrophils % (A) 80 %; RBC 3.27 m/uL (4.30-5.90); RDW 19.3 % (11.5-15.5); WBC 5.3 k/uL (3.8-10.6); WBC (Perox) 5.68
[2017-07-16 09:47] LABS: ALT 28 U/L (21-72); AST 30 U/L (17-59); Alkaline Phosphatase 96 U/L (38-126); Anion Gap 8 mmol/L; Blood Urea Nitrogen 16 mg/dL (9-20); Calcium 8.5 mg/dL (8.4-10.2); Carbon Dioxide 25 mmol/L (22-30); Chloride 98 mmol/L (98-107); Glucose 99 mg/dL (74-99); Sodium 131 mmol/L (137-145); Total Bilirubin 0.4 mg/dL (0.2-1.3); Total Protein 6.4 g/dL (6.3-8.2)
[2017-07-16 10:17] VITALS: RESP 14
[2017-07-16] MEDS: ALBUMIN HUMAN 25% 50 ML in EMPTY BAG 1 BAG IVPB SCH ×3 (10:20→11:18)
[2017-07-16 11:52] VITALS: BP 129/66; PULSE 94
--- NOTE | 2017-07-16 14:28 | US ---
EXAMINATION TYPE: US paracentesis abd w/image DATE OF EXAM: 07/16/2017 COMPARISON: NONE HISTORY: Ascites. PROCEDURE: Maximal barrier technique was utilized. The skin overlying a suitable pocket of fluid was localized with ultrasound and the overlying skin was prepped and draped. Ultrasound was utilized with sterile technique. Lidocaine was used for local anesthesia and a skin louann made with a scalpel. Catheter was advanced under direct ultrasound guidance into a suitable pocket of fluid and approximately 7.9 liter s of serous fluid were removed. Catheter was withdrawn and hemostasis achieved. There is no immedia te complication; the patient is discharged in stable condition. IMPRESSION: STATUS POST ULTRASOUND GUIDED PARACENTESIS FOR PALLIATION OF ASCITES. THIS PROCEDURE WA S PERFORMED BY THE UNDERSIGNED.
== END 2017-07-16 11:58 | disposition home or self-care (01) ==
LOC: RADPROMAIN 08:44
PROVIDERS: ATTEND Internal Medicine Gastroenterology
DX: R18.8 Other ascites (principal)
CPT/HCPCS: 80053; 85025; 85049; 85610; 85730; 96365; 49083; P9047

== ENCOUNTER 2017-07-31 12:07 | Day surgery (SDC) | payer MEDICARE ==
[2017-07-31] MEDS: ALBUMIN HUMAN 25% 50 ML in EMPTY BAG 1 BAG IVPB SCH ×4 (13:40→14:46)
[2017-07-31 14:09] VITALS: RESP 14
[2017-07-31 14:57] VITALS: BP 132/60; PULSE 84
--- NOTE | 2017-07-31 15:54 | US ---
EXAMINATION TYPE: US paracentesis abd w/image DATE OF EXAM: 07/31/2017 COMPARISON: NONE HISTORY: Ascites. PROCEDURE: Maximal barrier technique was utilized. The skin overlying a suitable pocket of fluid was localized with ultrasound and the overlying skin was prepped and draped. Ultrasound was utilized with sterile technique. Lidocaine was used for local anesthesia and a skin louann made with a scalpel. Catheter was advanced under direct ultrasound guidance into a suitable pocket of fluid and approximately 7.7 liter s of serous fluid were removed. Catheter was withdrawn and hemostasis achieved. There is no immedia te complication; the patient is discharged in stable condition. IMPRESSION: STATUS POST ULTRASOUND GUIDED PARACENTESIS FOR PALLIATION OF ASCITES. THIS PROCEDURE WA S PERFORMED BY THE UNDERSIGNED.
== END 2017-07-31 15:11 | disposition home or self-care (01) ==
LOC: RADPROMAIN 12:07
PROVIDERS: ATTEND Internal Medicine Gastroenterology
DX: R18.8 Other ascites (principal)
CPT/HCPCS: 49083; 96365; P9047

== ENCOUNTER 2017-08-07 11:54 | Day surgery (SDC) | payer MEDICARE ==
[2017-08-07 12:32] VITALS: RESP 14; TEMP 98.1
[2017-08-07] MEDS: ALBUMIN HUMAN 25% 50 ML in EMPTY BAG 1 BAG IVPB SCH ×4 (13:22→14:19)
[2017-08-07 14:41] VITALS: BP 131/60; PULSE 86
--- NOTE | 2017-08-07 15:23 | US ---
EXAMINATION TYPE: US paracentesis abd w/image DATE OF EXAM: 08/07/2017 COMPARISON: NONE HISTORY: Ascites. PROCEDURE: Maximal barrier technique was utilized. The skin overlying a suitable pocket of fluid was localized with ultrasound and the overlying skin was prepped and draped. Ultrasound was utilized with sterile technique. Lidocaine was used for local anesthesia and a skin louann made with a scalpel. Catheter was advanced under direct ultrasound guidance into a suitable pocket of fluid and approximately 8.2 liter s of serous fluid were removed. Catheter was withdrawn and hemostasis achieved. There is no immedia te complication; the patient is discharged in stable condition. IMPRESSION: STATUS POST ULTRASOUND GUIDED PARACENTESIS FOR PALLIATION OF ASCITES. THIS PROCEDURE WA S PERFORMED BY THE UNDERSIGNED.
== END 2017-08-07 14:50 | disposition home or self-care (01) ==
LOC: RADPROMAIN 11:54
PROVIDERS: ATTEND Internal Medicine Gastroenterology
DX: R18.8 Other ascites (principal)
CPT/HCPCS: 49083; 96365; P9047

== ENCOUNTER 2017-08-14 11:53 | Day surgery (SDC) | payer MEDICARE ==
[2017-08-14 12:34] VITALS: RESP 14; TEMP 97.6
[2017-08-14] MEDS: ALBUMIN HUMAN 25% 50 ML in EMPTY BAG 1 BAG IVPB SCH ×3 (13:37→14:01)
[2017-08-14 14:14] VITALS: BP 128/57; PULSE 80
--- NOTE | 2017-08-14 16:06 | US ---
EXAMINATION TYPE: US paracentesis abd w/image DATE OF EXAM: 08/14/2017 COMPARISON: NONE HISTORY: Ascites. PROCEDURE: Maximal barrier technique was utilized. The skin overlying a suitable pocket of fluid was localized with ultrasound and the overlying skin was prepped and draped. Ultrasound was utilized with sterile technique. Lidocaine was used for local anesthesia and a skin louann made with a scalpel. Catheter was advanced under direct ultrasound guidance into a suitable pocket of fluid and approximately 5.3 liter s of serous fluid were removed. Catheter was withdrawn and hemostasis achieved. There is no immedia te complication; the patient is discharged in stable condition. IMPRESSION: STATUS POST ULTRASOUND GUIDED PARACENTESIS FOR PALLIATION OF ASCITES. THIS PROCEDURE WA S PERFORMED BY THE UNDERSIGNED.
== END 2017-08-14 14:25 | disposition home or self-care (01) ==
LOC: RADPROMAIN 11:53
PROVIDERS: ATTEND Internal Medicine Gastroenterology
DX: R18.8 Other ascites (principal)
CPT/HCPCS: 49083; 96365; P9047

== ENCOUNTER 2017-09-11 11:34 | Day surgery (SDC) | payer MEDICARE ==
[2017-09-11 12:21] VITALS: RESP 14; TEMP 97.9
[2017-09-11] MEDS: ALBUMIN HUMAN 25% 50 ML in EMPTY BAG 1 BAG IVPB SCH ×2 (13:38→14:02)
[2017-09-11 14:10] VITALS: BP 119/57; PULSE 69
--- NOTE | 2017-09-11 14:10 | US ---
Therapeutic paracentesis. DATE OF EXAM: 09/11/2017 CLINICAL HISTORY: Ascites The procedure was discussed with the patient. The risks, complications, benefits, and alternatives we re discussed and any questions were answered. Informed consent was obtained. The patient was placed s upine on the ultrasound table and prepped and draped in the usual sterile fashion. All elements of maximal barrier technique were utilized. Under ultrasound guidance, access into the left lower quadrant was obtained, via the paracentesis catheter system and direct ultrasound guidance . Approximately 4.8 liters of straw-colored fluid was removed. The patient was stable throughout the pr ocedure and remained stable upon discharge from Department of Radiology. IMPRESSION: Successful therapeutic paracentesis under ultrasound guidance.
== END 2017-09-11 14:32 | disposition home or self-care (01) ==
LOC: RADPROMAIN 11:34
PROVIDERS: ATTEND Internal Medicine Gastroenterology
DX: R18.8 Other ascites (principal)
CPT/HCPCS: 96365; 49083; P9047

== ENCOUNTER 2017-09-30 11:22 | Day surgery (SDC) | payer MEDICARE ==
[2017-09-30 12:05] VITALS: RESP 20; TEMP 98.3
[2017-09-30] MEDS: ALBUMIN HUMAN 25% 50 ML in EMPTY BAG 1 BAG IVPB SCH ×3 (12:51→13:39)
[2017-09-30 13:39] VITALS: BP 131/67; PULSE 80
--- NOTE | 2017-09-30 14:51 | US ---
Therapeutic paracentesis. DATE OF EXAM: 09/30/2017 CLINICAL HISTORY: Ascites The procedure was discussed with the patient. The risks, complications, benefits, and alternatives we re discussed and any questions were answered. Informed consent was obtained. The patient was placed s upine on the ultrasound table and prepped and draped in the usual sterile fashion. All elements of maximal barrier technique were utilized. Under ultrasound guidance, access into the left lower quadrant was obtained, via the paracentesis catheter system and direct ultrasound guidance . Approximately 4.2 liters of straw-colored fluid was removed. The patient was stable throughout the pr ocedure and remained stable upon discharge from Department of Radiology. IMPRESSION: Successful therapeutic paracentesis under ultrasound guidance.
== END 2017-09-30 13:40 | disposition home or self-care (01) ==
LOC: RADPROMAIN 11:22
PROVIDERS: ATTEND Internal Medicine Gastroenterology
DX: R18.8 Other ascites (principal)
CPT/HCPCS: 96365; 36415; 49083; P9047

== ENCOUNTER 2017-10-23 11:27 | Day surgery (SDC) | payer MEDICARE ==
[2017-10-23 13:25] VITALS: RESP 18; TEMP 97.7
[2017-10-23 14:47] VITALS: BP 109/74; PULSE 94
--- NOTE | 2017-10-23 14:55 | US ---
EXAMINATION TYPE: US paracentesis abd w/image DATE OF EXAM: 10/23/2017 COMPARISON: NONE HISTORY: Ascites. PROCEDURE: Maximal barrier technique was utilized. The skin overlying a suitable pocket of fluid was localized with ultrasound and the overlying skin was prepped and draped. Ultrasound was utilized with sterile technique. Lidocaine was used for local anesthesia and a skin louann made with a scalpel. Catheter was advanced under direct ultrasound guidance into a suitable pocket of fluid and approximately 3.7 liter s of serous fluid were removed. Catheter was withdrawn and hemostasis achieved. There is no immedia te complication; the patient is discharged in stable condition. IMPRESSION: STATUS POST ULTRASOUND GUIDED PARACENTESIS FOR PALLIATION OF ASCITES. THIS PROCEDURE WA S PERFORMED BY THE UNDERSIGNED.
== END 2017-10-23 14:30 | disposition home or self-care (01) ==
LOC: RADPROMAIN 11:27
PROVIDERS: ATTEND Internal Medicine Gastroenterology
DX: R18.8 Other ascites (principal)
CPT/HCPCS: 36415; 49083

== ENCOUNTER 2017-10-29 12:10 | Day surgery (SDC) | payer MEDICARE ==
[2017-10-29 13:07] VITALS: RESP 16; TEMP 98.3
[2017-10-29 14:00] VITALS: BP 106/54; PULSE 75
--- NOTE | 2017-10-29 15:47 | US ---
Therapeutic paracentesis. DATE OF EXAM: 10/29/2017 CLINICAL HISTORY: Ascites The procedure was discussed with the patient. The risks, complications, benefits, and alternatives we re discussed and any questions were answered. Informed consent was obtained. The patient was placed s upine on the ultrasound table and prepped and draped in the usual sterile fashion. All elements of maximal barrier technique were utilized. Under ultrasound guidance, access into the right lower quadrant was obtained, via the paracentesis catheter system and direct ultrasound guidanc e. Approximately 2.75 liters of straw-colored fluid was removed. The patient was stable throughout the p rocedure and remained stable upon discharge from Department of Radiology. IMPRESSION: Successful therapeutic paracentesis under ultrasound guidance.
== END 2017-10-29 14:09 | disposition home or self-care (01) ==
LOC: RADPROMAIN 12:10
PROVIDERS: ATTEND Internal Medicine Gastroenterology
DX: R18.8 Other ascites (principal)
CPT/HCPCS: 49083

== ENCOUNTER 2017-11-07 12:00 | Day surgery (SDC) | payer MEDICARE ==
[2017-11-07 12:14] VITALS: BP 148/67; PULSE 69; RESP 20; TEMP 97.7
--- NOTE | 2017-11-07 12:48 | US ---
Therapeutic paracentesis discontinued. DATE OF EXAM: 11/07/2017 CLINICAL HISTORY: Ascites Preliminary imaging demonstrated no sizable amount fluid for safe percutaneous access. IMPRESSION: Discontinued paracentesis due to insufficient fluid..
== END 2017-11-07 13:00 | disposition home or self-care (01) ==
LOC: RADPROMAIN 12:00
PROVIDERS: ATTEND Internal Medicine Gastroenterology
DX: R18.8 Other ascites (principal)
CPT/HCPCS: 76705

== ENCOUNTER 2017-11-13 11:28 | Day surgery (SDC) | payer MEDICARE ==
[2017-11-13 12:43] VITALS: TEMP 97.8
[2017-11-13 13:57] VITALS: RESP 14
[2017-11-13 14:31] VITALS: BP 120/57; PULSE 68
--- NOTE | 2017-11-13 16:00 | US ---
EXAMINATION TYPE: US paracentesis abd w/image DATE OF EXAM: 11/13/2017 COMPARISON: NONE HISTORY: Ascites. PROCEDURE: Maximal barrier technique was utilized. The skin overlying a suitable pocket of fluid was localized with ultrasound and the overlying skin was prepped and draped. Ultrasound was utilized with sterile technique. Lidocaine was used for local anesthesia and a skin louann made with a scalpel. Catheter was advanced under direct ultrasound guidance into a suitable pocket of fluid and approximately 2 liters of serous fluid were removed. Catheter was withdrawn and hemostasis achieved. There is no immediate complication; the patient is discharged in stable condition. IMPRESSION: STATUS POST ULTRASOUND GUIDED PARACENTESIS FOR PALLIATION OF ASCITES. THIS PROCEDURE WA S PERFORMED BY THE UNDERSIGNED.
== END 2017-11-13 14:45 | disposition home or self-care (01) ==
LOC: RADPROMAIN 11:28
PROVIDERS: ATTEND Internal Medicine Gastroenterology
DX: R18.8 Other ascites (principal)
CPT/HCPCS: 49083

== ENCOUNTER 2017-12-04 12:01 | Day surgery (SDC) | payer MEDICARE ==
[2017-12-04 12:24] VITALS: RESP 20; TEMP 97.7
--- NOTE | 2017-12-04 13:50 | US ---
Therapeutic paracentesis. DATE OF EXAM: 12/04/2017 CLINICAL HISTORY: Ascites The procedure was discussed with the patient. The risks, complications, benefits, and alternatives we re discussed and any questions were answered. Informed consent was obtained. The patient was placed s upine on the ultrasound table and prepped and draped in the usual sterile fashion. All elements of maximal barrier technique were utilized. Under ultrasound guidance, access into the right lower quadrant was obtained, via the paracentesis catheter system and direct ultrasound guidanc e. Approximately 4.5 liters of straw-colored fluid was removed. The patient was stable throughout the pr ocedure and remained stable upon discharge from Department of Radiology. IMPRESSION: Successful therapeutic paracentesis under ultrasound guidance.
[2017-12-04 13:53] VITALS: BP 138/68; PULSE 77
== END 2017-12-04 14:05 | disposition home or self-care (01) ==
LOC: RADPROMAIN 12:01
PROVIDERS: ATTEND Internal Medicine Gastroenterology
DX: R18.8 Other ascites (principal)
CPT/HCPCS: 49083

== ENCOUNTER 2017-12-19 11:48 | Day surgery (SDC) | payer MEDICARE ==
[2017-12-19 12:32] VITALS: RESP 20; TEMP 97.4
[2017-12-19 14:06] VITALS: BP 124/58; PULSE 75
--- NOTE | 2017-12-19 15:41 | US ---
EXAMINATION TYPE: US paracentesis abd w/image DATE OF EXAM: 12/19/2017 COMPARISON: NONE HISTORY: Ascites. PROCEDURE: Maximal barrier technique was utilized. The skin overlying a suitable pocket of fluid was localized with ultrasound and the overlying skin was prepped and draped. Ultrasound was utilized with sterile technique. Lidocaine was used for local anesthesia and a skin louann made with a scalpel. Catheter was advanced under direct ultrasound guidance into a suitable pocket of fluid and approximately 4.4 liter s of serous fluid were removed. Catheter was withdrawn and hemostasis achieved. There is no immedia te complication; the patient is discharged in stable condition. IMPRESSION: STATUS POST ULTRASOUND GUIDED PARACENTESIS FOR PALLIATION OF ASCITES. THIS PROCEDURE WA S PERFORMED BY THE UNDERSIGNED.
== END 2017-12-19 12:20 | disposition home or self-care (01) ==
LOC: RADPROMAIN 11:48
PROVIDERS: ATTEND Internal Medicine Gastroenterology
DX: R18.8 Other ascites (principal)
CPT/HCPCS: 36415; 49083

== ENCOUNTER 2018-01-03 10:15 | Day surgery (SDC) | payer MEDICARE ==
[~2018-01-03 10:15] MED LIST changes: -ALPRAZolam 0.25 MG TAB PO ONE; +LACTATED RINGERS 1,000 ML IV SCH
[2018-01-03 11:14] VITALS: TEMP 98
[2018-01-03] MEDS ORDERED: LIDOCAINE 1% 20 ML VIAL (10MG/ML) FOR IV START INTRADERMA ONE (11:23)
[2018-01-03] MEDS ORDERED: LIDOCAINE 1% INJ 10MG/ML (20 ML MDV) ONE (12:13)
[2018-01-03] MEDS ORDERED: PROPOFOL 10 MG/ML 20 ML VIAL IV ONE (12:13)
--- NOTE | 2018-01-03 12:31 | P.PCN ---
Date of Procedure: 01/03/18 Procedure(s) Performed: BRIEF HISTORY: Patient is a 72-year-old, pleasant, white male with history of cirrhosis of the liver and portal hypertension/history of GAVE and recurrent iron deficiency anemia is scheduled for an upper endoscopy with argon plasma coagulation. He has been transfusion dependent for almost 3 years. His being evaluated for liver transplantation. PROCEDURE PERFORMED: Esophagogastroduodenoscopy with argon plasma coagulation. 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 IV sedation per anesthesia. PROCEDURE: After informed consent was obtained, the patient was brought into the endoscopy unit. IV sedation was administered by Anesthesia under continuous monitoring. Initially the Olympus GIF-140 video endoscope was inserted into the mouth. Esophagus intubated without any difficulty. It was gradually advanced into the stomach and duodenum and carefully examined. The bulb and the second part of the duodenum appeared normal. 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 Argon plasma coagulation was performed. Mucosa of the antrum also had some nodularity seen. The body, cardia and the fundus appeared normal. The scope was then withdrawn into the esophagus. The GE junction was located at 39 cm from the incisors. The esophagus appeared normal. There were no erosions or ulcerations seen . Small esophageal varices noted and the patient tolerated the procedure well. IMPRESSION: 1. 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 2. Small esophageal varices. RECOMMENDATIONS: The findings of this examination were discussed with the patient as well as his family. He will continue with iron supplements. CBC will be monitored every 2 weeks..
[2018-01-03 12:37] VITALS: RESP 16
[2018-01-03 13:02] VITALS: BP 114/68; PULSE 89
== END 2018-01-03 13:28 | disposition home or self-care (01) ==
LOC: ORWHC2ENDO 10:15
PROVIDERS: ATTEND Internal Medicine Gastroenterology
DX: K31.819 Angiodysplasia of stomach and duodenum without bleeding (principal); I85.00 Esophageal varices without bleeding; D50.9 Iron deficiency anemia, unspecified; K74.60 Unspecified cirrhosis of liver; K76.6 Portal hypertension; E78.5 Hyperlipidemia, unspecified; K21.9 Gastro-esophageal reflux disease without esophagitis; F32.9 Major depressive disorder, single episode, unspecified; R18.8 Other ascites; Z76.82 Awaiting organ transplant status; Z79.899 Other long term (current) drug therapy; Z88.1 Allergy status to other antibiotic agents
CPT/HCPCS: 43255; J2001; J2704; 43270